=== PATIENT | female | born 1980 ===

== ENCOUNTER 2021-08-19 01:15 | Inpatient (IN) | payer OTHER ==
[~2021-08-19] VITALS: Ht 160 cm; Wt 73.8 kg
[2021-08-19] VITALS (12 sets, daily range): BP systolic 90–112; BP diastolic 50–76
[2021-08-19] MEDS ORDERED: ceFAZolin 2 GM IV Premixed 50 ML IV ONE (01:45)
[2021-08-19] MEDS ORDERED: CITRIC ACID/SOB CIT (BICITRA) 30 ML UDC ONE (01:56)
[2021-08-19] MEDS ORDERED: METOCLOPRAMIDE INJ 10 MG/2 ML (REGLAN) ONE (01:56)
[2021-08-19] MEDS ORDERED: FAMOTIDINE 20MG/2ML IV (PEPCID) ONE (01:56)
[2021-08-19] MEDS ORDERED: ceFAZolin 2 GM IV Premixed 50 ML ONE (01:57)
[2021-08-19 01:59] LABS: BASOPHILS % (AUTO) 0 % (0-10); EOSINOPHILS % (AUTO) 0 % (0-10); HEMATOCRIT 38 % (35-52); HEMOGLOBIN 13.3 g/dL (11.5-16.0); LYMPHOCYTES # (AUTO) 1.5 10^3/uL (1.0-4.0); LYMPHOCYTES % (AUTO) 16 % (12-44); MEAN CORPUSCULAR HEMOGLOBIN 33 pg (25-34); MEAN CORPUSCULAR HGB CONC 35 g/dL (32-36); MEAN CORPUSCULAR VOLUME 96 fL (80-99); MEAN PLATELET VOLUME 10.1 fL (9.0-12.2); MONOCYTES # (AUTO) 0.5 10^3/uL (0.0-1.0); MONOCYTES % (AUTO) 6 % (0-12); NEUTROPHILS # (AUTO) 6.7 10^3/uL (1.8-7.8); NEUTROPHILS % (AUTO) 75 % (42-75); PLATELET COUNT 201 10^3/uL (130-400)
[2021-08-19] MEDS ORDERED: CATHETER FLUSH 10 ML SYR IV PRN (02:00)
[2021-08-19] MEDS ORDERED: METOCLOPRAMIDE INJ 10 MG/2 ML (REGLAN) IV ONE (02:00)
[2021-08-19] MEDS ORDERED: FAMOTIDINE 20MG/2ML IV (PEPCID) IV ONE (02:00)
[2021-08-19] MEDS ORDERED: CITRIC ACID/SOB CIT (BICITRA) 30 ML UDC PO ONE (02:00)
[2021-08-19] MEDS ORDERED: LACTATED RINGERS 1,000 ML IV PRN ×2 (02:00)
--- NOTE | 2021-08-19 02:18 | History & Physical-OB ---
OB - Chief Complaint & HPI Date/Time Date of Admission: Date of Admission: Aug 19, 2021 at 01:38 Date seen by a Provider: Aug 19, 2021 Time Seen by a Provider: 14:00 Chief Complaint/History OB-Reason for Admission/Chief: 41 year old Hx : 4 Hx Para: 2 Expected Date of Delivery: Sep 07, 2021 Gestational Age in Weeks: 37 Gestational Age in Days: 2 Indication for : desires repeat Other reason for admission: Sakina is a 41 at 37 2/7 week gestation presents with complaint of SROM at approximatley 11 pm last night. On admission she was grossly ruptured with blood tinged fluid. complicated by lack of care (2 visits scheduled with [facility] and [address] Mclaughlin for CS consultation at 35 weeks). There was a low lying placenta (1 cm from os in third trimester US) but no follow up US had been done. She is 41 years of age and has had genetic testing showing no trisomy. Few visits were done and no other concerns were noted Admission Nurse Assessment Rev: Yes History of Labs O+/- Rub I VDRL NR HBsAg - HIV - GBS not done Allergies and Home Medications Allergies Coded Allergies: No Known Drug Allergies (Unverified , 08/19/21) Patient Home Medication List Home Medication List Reviewed: Yes OB - History Hx of Present Ultrasounds: Abnormal US findings (low lying posterior placenta) Obstetrical Complications: None Medical Complications: None Information Induced Hypertension: No Maternal Gestational Diabetes: No Hemorrhage: No Obstetrical History Hx : 4 Hx Para: 2 Hx # Term Pregnancies: 2 Hx # Pregnancies: 0 Number of Living Children: 2 Hx Termination: No Delivery History Hx Section: Yes (x 2) Patient Past Medical History NC Social History/Family History Alcohol Use: Denies Use Recreational Drug Use: No Smoking Cessation: Never smoker Immunizations Tetanus Booster (TDap): Unknown Rubella: immune RPR/VDRL: Negative GBS Status: Negative HBsAG: Negative OB - Admission Exam Physical Exam Vitals: see RN chart HEENT: NCAT Lungs: Clear Abdomen: Gravid Amniotic Fluid: Other (blood tinged) Heart Rate: 140's Accelerations: Accelerations Present Decelerations: No Decelerations Short Term Variability: Present Usp Variability: Average (6-25) Contractions on Admission: < 5 Minutes Apart Labs Laboratory Tests Test 08/19/21 01:45 Range/Units White Blood Count 9.0 4.3-11.0 10^3/uL Red Blood Count 4.01 3.80-5.11 10^6/uL Hemoglobin 13.3 11.5-16.0 g/dL Hematocrit 38 35-52 % Mean Corpuscular Volume 96 80-99 fL Mean Corpuscular Hemoglobin 33 25-34 pg Mean Corpuscular Hemoglobin Concent 35 32-36 g/dL Red Cell Distribution Width 13.3 10.0-14.5 % Platelet Count 201 130-400 10^3/uL Mean Platelet Volume 10.1 9.0-12.2 fL Immature Granulocyte % (Auto) 2 % Neutrophils (%) (Auto) 75 42-75 % Lymphocytes (%) (Auto) 16 12-44 % Monocytes (%) (Auto) 6 0-12 % Eosinophils (%) (Auto) 0 0-10 % Basophils (%) (Auto) 0 0-10 % Neutrophils # (Auto) 6.7 1.8-7.8 10^3/uL Lymphocytes # (Auto) 1.5 1.0-4.0 10^3/uL Monocytes # (Auto) 0.5 0.0-1.0 10^3/uL Eosinophils # (Auto) 0.0 0.0-0.3 10^3/uL Basophils # (Auto) 0.0 0.0-0.1 10^3/uL Immature Granulocyte # (Auto) 0.2 H 0.0-0.1 10^3/uL OB - Assessment/Plan/Diagnosis Assessment Assessment: section, rupture of membranes Admission Dx Previous CS SROM in active labor low lying placenta active labor Admission Status: Inpatient Order (span 2 midnights) Reason for Inpatient Admission: section Plan Plan: Section (Plan repeat section. Risks of bleeding infection injury to bowel bladder and ureter. Will TxC x 2 units due to suspected low lying placenta previa. Antibiotics started due to unknown GBS status. Proper consents have been obtained. ) DANIEL SANTIAGO DO Aug 19, 2021 02:18
[2021-08-19] MEDS ORDERED: fentaNYL INJ 100 MCG/2 ML AMP ONE (02:25)
[2021-08-19] MEDS ORDERED: TRANEXAMIC ACID 100 MG/ML 10 ML INJECTION ONE (02:44)
[2021-08-19] MEDS ORDERED: TRANEXAMIC ACID INJECTION 1,000 MG in NS (IVPB) 50 ML IV ONE (02:45)
[2021-08-19] MEDS ORDERED: NS (IVPB) 50 ML ONE (02:45)
[2021-08-19] MEDS ORDERED: OXYTOCIN PRE-MIX DRIP 500 ML IV ONE ×2 (02:47→02:49)
[2021-08-19] MEDS ORDERED: ROPIVACAINE 5MG/ML 30ML VIAL ONE (02:47)
[2021-08-19] MEDS ORDERED: PHENYLEPHRINE 100 MCG/ML 10 ML (ANESTHESIA) SYR ONE (02:51)
--- NOTE | 2021-08-19 03:26 | Cesarean Section Operative ---
Procedure Procedure Note Pre-operative Diagnosis: Margaret Turner is a 41 /Para 4 / 2, Gestational Age 37 2/7 weeks with spontaneous rupture of membranes, low lying placenta, vaginal bleeding, labor, previous section x 2, advanced maternal age Post-operative Diagnosis: same, OP presentation Procedure: Repeat low transverse section Physician: DANIEL SANTIAGO Estimated blood loss: 500 mL Disposition: stable Findings: Viable female , Apgars 8/9, weight 6#3ounces, intact placenta, 3vc, normal appearing uterus, tubes, and ovaries. Indications:Margaret Turner is a 41 /Para 4 / 2,Gestational Age 37 2/7 weeks with spontaneous rupture of membranes, low lying placenta, vaginal bleeding, labor, previous section x 2, advanced maternal age presenting for repeat section Procedure Details: The patient was seen in pre-op and the procedure was discussed with the patient in full, including the risks, benefits, and alternatives. All questions were answered. The patient was taken to the operating room and a time out was performed, verifying patient and procedure. After spinal anesthesia was placed by our anesthesia colleagues, the patient was placed in the dorsal supine with leftward tilt for uterine displacement.~ Her abdomen was then prepped and draped in the typical sterile fashion. A Pfannenstiel skin incision was made using a scalpel and carried down through the underlying fascia. The fascia was incised in the midline and tented up using Nicole clamps. On both the inferior and superior fascia side the rectus muscle was dissected off bluntly and sharply using Perez scissors. The peritoneum was identified and entered bluntly in the midline. This was then stretched laterally using manual strength. After entering the abdominal cavity and confirming lack of intraperitoneal adhesions, a large Benito retractor was placed and the lower uterine segment was visualized. A scalpel was utilized to make a low transverse uterine incision. Amniotomy was performed with an Allis clamp with return of clear fluid. The 's head was grasped and brought to the level of the incision. Fundal pressure was applied and was delivered without difficulty. Mouth and nares were suctioned with bulb suction. After the umbilical cord was clamped and cut, the was handed off to the pediatric staff. A sample of cord blood was then obtained. The placenta was delivered intact via uterine massage. It was noted to be posterior and not low lying. The uterus was cleared of all clots and debris. IV TXA 1 gram was given for bleeding prophylaxis. The uterine incision was closed using 0 Vicryl in a running locked fashion. A second imbricated layer was placed using 0 Vicryl in a running fashion as well. The uterus was flexed forward and the posterior rectouterine space was inspected and cleared of all clots and debris. Again the hysterotomy site was examined and hemostasis was observed. The bilateral tubes and ovaries appeared normal. The uterus was placed back into the abdominal cavity and abdominal gutters were cleared of all clots and debris. A final check of the uterine incision showed it to be hemostatic. The peritoneum was closed using 3-0 Vicryl in a running fashion. The muscles were reapproximated in the midline with a loose figure of eight stitch of 3-0 Vicryl. The fascia was closed with 0 PDS in a running fashion. The subcutaneous space was hemostatic, and irrigated. The subcutaneous space was closed with 3-0 Plain in several single interrupted stitches. The skin was then closed using 4-0 Monocryl in a running subcuticular fashion. The skin edges were reapproximated together and were hemostatic. A pressure dressing was applied. All sponge, lap a nd needle counts were correct at the end of the procedure per nursing. Vitals - Labs Vital Signs - I&O Vital Signs Date Time Temp Pulse Resp B/P (MAP) Pulse Ox O2 Delivery O2 Flow Rate FiO2 08/19/21 02:00 36.6 68 18 112/76 (88) 97 Room Air I & O 08/19/21 07:00 Intake Total 1000 ml Output Total 125 ml Balance 875 ml Labs Laboratory Tests 08/19/21 01:45: White Blood Count 9.0, Red Blood Count 4.01, Hemoglobin 13.3, Hematocrit 38, Mean Corpuscular Volume 96, Mean Corpuscular Hemoglobin 33, Mean Corpuscular Hemoglobin Concent 35, Red Cell Distribution Width 13.3, Platelet Count 201, Mean Platelet Volume 10.1, Immature Granulocyte % (Auto) 2, Neutrophils (%) (Auto) 75, Lymphocytes (%) (Auto) 16, Monocytes (%) (Auto) 6, Eosinophils (%) (Auto) 0, Basophils (%) (Auto) 0, Neutrophils # (Auto) 6.7, Lymphocytes # (Auto) 1.5, Monocytes # (Auto) 0.5, Eosinophils # (Auto) 0.0, Basophils # (Auto) 0.0, Immature Granulocyte # (Auto) 0.2H DANIEL SANTIAGO DO Aug 19, 2021 03:26
[2021-08-19] MEDS ORDERED: morphine INJ 4 MG/ML 1 ML (VIAL/SYRINGE) IV PRN (03:30)
[2021-08-19] MEDS ORDERED: MEASLES,MUMPS,RUBELLA 1 EA INJ SC SCH (03:30)
[2021-08-19] MEDS ORDERED: ONDANSETRON 4 MG/2 ML (SDV) Z0FRAN IVP PRN ×2 (03:30→03:45)
[2021-08-19] MEDS ORDERED: OXYTOCIN PRE-MIX DRIP 500 ML IV SCH (03:30)
[2021-08-19] MEDS ORDERED: NALOXONE 0.4 MG/ML 1 ML (NARCAN) VIAL IV PRN (03:30)
[2021-08-19] MEDS ORDERED: TETANUS,DIPTH,PERTUSS P/F (BOOSTRIX) 0.5 ML VIAL IM SCH (03:30)
[2021-08-19] MEDS ORDERED: HYDROmorphone 2 MG/ML VIAL (DILAUDID) IV ONE (03:45)
[2021-08-19] MEDS: KETOROLAC 30 MG/ML VIAL IV SCH ×4 (04:09→23:59)
[2021-08-19] MEDS: DOCUSATE SODIUM 100 MG (COLACE) CAP PO SCH ×2 (08:51→20:19)
[2021-08-19] MEDS ORDERED: ACET-93 PO (11:50)
[2021-08-19] MEDS ORDERED: OXC5T PO (11:50)
[2021-08-19] MEDS ORDERED: DOCU100C37 PO (11:50)
[2021-08-19] MEDS ORDERED: IBUP-844 PO (11:50)
--- NOTE | 2021-08-19 12:27 | Anesthesia-Regional Post-Op ---
Regional Patient Condition Mental Status: Alert, Oriented x3 Circulation: Same as Pre-Op Headache: Absent Sensation: Full Recovery Motor Block: Absent Post Op Complications Complications None Follow Up Care/Instructions Patient Instructions None needed. Anesthesia/Patient Condition Patient is doing well, no complaints, stable vital signs, no apparent adverse anesthesia problems. No complications reported per nursing. MIREYA JOSEPH CRNA Aug 19, 2021 12:27
[2021-08-19] MEDS: ACETAMINOPHEN 500 MG TAB (TYLENOL) PO SCH (16:04)
[2021-08-19] MEDS: CATHETER FLUSH 10 ML SYR IV SCH (23:59)
[2021-08-20] MEDS: ACETAMINOPHEN 500 MG TAB (TYLENOL) PO SCH ×3 (00:37→08:49)
[2021-08-20 01:42] VITALS: BP 96/52
--- NOTE | 2021-08-20 01:57 | Discharge Inst-Women's Service ---
Discharge Inst-Women's Serv Depart Medication/Instructions New, Converted or Re-Newed RX: RX on Chart Instructions nothing in vagina for 6 weeks no driving for 1 week no lifting over 25 lbs Final Diagnosis previous section vaginal bleeding low lying placenta spontaneous rupture of membranes advanced maternal age Problems Reviewed?: Yes Consults/Follow Up Additional Follow Up: Yes (1 week for incision check with [facility] [phone]. 6 week post at [facility]) Activity Activity: Activity as Tolerated Driving Instructions: No Driving for 1 Week NO SMOKING: NO SMOKING Nothing Inside Vagina: No Douching, No Minier, No Tampons Diet Discharge Diet: No Restrictions Symptoms to Report to : Eyesight Changes, Pain Increased, Fever Over 101 Degrees F, Vaginal Bleeding Increase, Cramps in Feet or Legs, Vaginal Discharge Foul For Any Problems or Questions: Contact Your Physician Skin/Wound Care Infection Signs and Symptoms: Increased Redness, Foul Odor of Wound, Increased Drainage, Skin Itchy or Has a Rash, Increased Swelling, Temperature Above 101 F Operative Area Clean and Dry: Keep Incision Clean/Dry Stitches/[place]/Dermabond: Dermabond Bathing Instructions: DANIEL Harris DO Aug 20, 2021 01:57
[2021-08-20] MEDS ORDERED: MILK OF MAGNESIA 400 MG/5 ML 30 ML UDC PO PRN (05:00)
[2021-08-20 05:57] LABS: BASOPHILS % (AUTO) 0 % (0-10); EOSINOPHILS # (AUTO) 0.1 10^3/uL (0.0-0.3); EOSINOPHILS % (AUTO) 1 % (0-10); HEMATOCRIT 32 % (35-52); HEMOGLOBIN 10.8 g/dL (11.5-16.0); LYMPHOCYTES # (AUTO) 1.6 10^3/uL (1.0-4.0); LYMPHOCYTES % (AUTO) 17 % (12-44); MEAN CORPUSCULAR HEMOGLOBIN 34 pg (25-34); MEAN CORPUSCULAR HGB CONC 34 g/dL (32-36); MEAN CORPUSCULAR VOLUME 98 fL (80-99); MEAN PLATELET VOLUME 10.5 fL (9.0-12.2); MONOCYTES # (AUTO) 0.4 10^3/uL (0.0-1.0); MONOCYTES % (AUTO) 5 % (0-12); NEUTROPHILS # (AUTO) 7.3 10^3/uL (1.8-7.8); NEUTROPHILS % (AUTO) 76 % (42-75); PLATELET COUNT 159 10^3/uL (130-400); WHITE BLOOD COUNT 9.6 10^3/uL (4.3-11.0)
[2021-08-20] MEDS: CATHETER FLUSH 10 ML SYR IV SCH (06:00)
[2021-08-20] MEDS: IBUPROFEN 600 MG (MOTRIN) TAB PO SCH ×2 (06:36→11:38)
[2021-08-20 08:00] VITALS: BP 95/53
[2021-08-20] MEDS: DOCUSATE SODIUM 100 MG (COLACE) CAP PO SCH (08:18)
--- NOTE | 2021-08-20 11:34 | Postpartum Progress Note ---
Note Note Day # Subjective: Patient is without complaints. Ambulating, voiding. Tolerating a regular diet without nausea or vomiting. Normal lochia. Pain is well controlled with oral pain medications. Objective: Physical Exam: General - Alert and oriented, no apparent distress Abdomen - Soft, appropriately tender to palpation, non-distended, fundus firm at umbilicus Extremities - no edema, negative Elayne's bilaterally Incision- c/d/i Assessment: POD 1 RLTCS Acute blood loss anemia Plan: Routine care. Encourage breast feeding. Encourage ambulation. Ferrous sulfate supplementation. Plan for discharge today or tomorrow Vitals - Labs Vital Signs - I&O Vital Signs Date Time Temp Pulse Resp B/P (MAP) Pulse Ox O2 Delivery O2 Flow Rate FiO2 08/20/21 08:00 36.1 67 18 95/53 (67) 97 Room Air 08/20/21 01:42 36.5 68 18 96/52 (67) 97 Room Air 08/19/21 19:38 36.9 69 20 102/55 (71) 97 Room Air 08/19/21 15:47 36.4 70 20 103/56 (72) 97 Room Air 08/19/21 12:00 36.4 65 16 96/51 (66) 97 Room Air I & O 08/20/21 07:00 Intake Total 2140 ml Output Total 2300 ml Balance -160 ml Labs Laboratory Tests 08/20/21 05:25: White Blood Count 9.6, Red Blood Count 3.22L, Hemoglobin 10.8L, Hematocrit 32L, Mean Corpuscular Volume 98, Mean Corpuscular Hemoglobin 34, Mean Corpuscular Hemoglobin Concent 34, Red Cell Distribution Width 13.9, Platelet Count 159, Mean Platelet Volume 10.5, Immature Granulocyte % (Auto) 1, Neutrophils (%) (Auto) 76H, Lymphocytes (%) (Auto) 17, Monocytes (%) (Auto) 5, Eosinophils (%) (Auto) 1, Basophils (%) (Auto) 0, Neutrophils # (Auto) 7.3, Lymphocytes # (Auto) 1.6, Monocytes # (Auto) 0.4, Eosinophils # (Auto) 0.1, Basophils # (Auto) 0.0, Immature Granulocyte # (Auto) 0.1 MILTON HAAS DO Aug 20, 2021 11:34
== END 2021-08-20 15:10 | disposition home or self-care (01) | DRG 787 ==
LOC: WSo 01:15 → LDRP 01:38 → WS 04:30
PROVIDERS: ADMIT Obstetrics & Gynecology; ATTEND Obstetrics & Gynecology
PROC: 10D00Z1 Extraction of Products of Conception, Low, Open Approach (ICD-10-PCS; principal; 2021-08-19 02:31)
DX: O34.211 Maternal care for low transverse scar from previous cesarean delivery (principal); O44.43 Low lying placenta NOS or without hemorrhage, third trimester; D62 Acute posthemorrhagic anemia; Z3A.37 37 weeks gestation of pregnancy; Z37.0 Single live birth; O64.2XX0 Obstructed labor due to face presentation, not applicable or unspecified; O90.81 Anemia of the puerperium
CPT/HCPCS: 36415; 85025; 86850; 86900; 86901; 86920; 99212

== ENCOUNTER 2021-08-24 05:40 | Outpatient (CLI) | payer SELFPAY ==
[~2021-08-24 05:40] MED LIST: ACET-93 PO; DOCU100C37 PO; IBUP-844 PO; OXC5T PO
== END 2021-08-24 14:00 | disposition home or self-care (01) ==
LOC: PREOP 05:40
PROVIDERS: ATTEND Obstetrics & Gynecology
DX: Z01.818 Encounter for other preprocedural examination (principal)